=== PATIENT | male | born 1980 | race African-American/Black ===

== ENCOUNTER 2021-08-14 01:24 | Observation (INO) | payer OTHER ==
[2021-08-14] VITALS (11 sets, daily range): BP systolic 121–178; BP diastolic 67–97
[~2021-08-14] VITALS: Ht 175.3 cm; Wt 107.0 kg
--- NOTE | 2021-08-14 01:25 | NUR ---
BY EMS TO ROOM
--- NOTE | 2021-08-14 01:35 | NUR ---
PT AR[facility]IV[facility] FROM [facility]. PAIN 10/10 WITH C/O ABD PAIN AND EMESIS FOR THE LAST 6 HOURS. STATES NO BM FOR 3-4 DAYS. PT BP ELEVATED. PT STATES WAS ON BP MEDS IN PAST BUT HAS NOT TAKEN IN OVER 1 MONTH[address] MON[address]ORS APPLIED AND DR. Zhang BOUCHER BS.
[2021-08-14 02:13] LABS: HEMATOCRIT 39.1 % (39.0-50.0); HEMOGLOBIN 11.9 g/dl (14.0-18.0); IMMATURE GRANULOCYTES 0.6 % (0.0-5.0); MEAN CELL VOLUME 91.4 fL CALC (80.0-100.0); MEAN CORPUSCULAR HGB 27.8 pG CALC (26.0-32.0); MEAN CORPUSCULAR HGB CONC 30.4 g/dL CAL (32.0-36.0); NEUT# 10.14 thou/uL (1.82-7.42); RED BLOOD COUNT 4.28 mill/uL (4.70-6.10); RED CELL DISTRI WIDTH 12.2 % (11.5-15.5)
[2021-08-14 02:29] LABS: ALKALINE PHOSPHATASE 95 u/l (38-126); AMYLASE 110 u/l (30-110); ANION GAP 16 (6-22 (CALC)); BILIRUBIN, TOTAL 0.9 mg/dL (0.0-1.4); BUN 13 mg/dL (9-20); BUN/CREATININE RATIO 18 (12-20 (CALC)); CARBON DIOXIDE 25 mmol/l (22-30); CHLORIDE 100 mmol/l (95-108); CREATININE 0.7 mg/dL (0.7-1.3); GFR > 60 ML/MIN (>=60 (CALC)); GFR FOR AFR.AMER. > 60 ML/MIN (>=60 (CALC)); LIPASE 87 u/l (23-300); POTASSIUM 4.1 mmol/l (3.5-5.1); SGOT/AST 33 u/l (17-59); SODIUM 136 mmol/l (137-146); TOTAL PROTEIN 8.9 g/dL (6.3-8.2)
[2021-08-14 02:31] LABS: ACT PARTIAL THROMBO TIME 22.4 SECONDS (20.0-32.5); INTERNATIONAL NORMALIZED RATIO 1.1 RATIO (0.7-1.3)
--- NOTE | 2021-08-14 03:04 | NUR ---
CONTINUES TO BE COMFORTABLE. DENIES NAUSEA OR VOMITING. PAIN 12/26
--- NOTE | 2021-08-14 03:30 | NUR ---
RETURN FROM RADIOLOGY. STILL UNABLE VOID. IV FLUIDS RESTARTED.
--- NOTE | 2021-08-14 04:20 | NUR ---
PT TO BE TRANSFERRED TO M/S 279.
[2021-08-14 05:04] LABS: URINE BILIRUBIN - DIPSTICK NEGATIVE (NEGATIVE); URINE BLOOD DIPSTICK TRACE-INTACT (NEGATIVE); URINE COLOR YELLOW; URINE GLUCOSE - DIPSTICK NEGATIVE (NEGATIVE); URINE KETONE NEGATIVE (NEGATIVE); URINE LEUK ESTERASE NEGATIVE (NEGATIVE); URINE PH 7.5 (4.5-8.0); URINE PROTEIN - DIPSTICK NEGATIVE (NEG-TRACE); URINE SPECIFIC GRAVITY 1.015; URINE UROBILINOGEN - DIPSTICK 0.2 E.U./dL (0.2)
[2021-08-14 05:05] LABS: URINE NITRITE - DIPSTICK NEGATIVE (Negative)
--- NOTE | 2021-08-14 05:53 | NUR ---
PATIENT ARRIVED VIA STRETCHER ACCOMPANIED BY Alvina DURAN RN, AND [facility] GUARDS X2. BEDSIDE REPORT RECEIVED AT THIS TIME, ANTIBIOTIC STARTED AND FLUIDS TO RUN AFTER, FLUIDS STARTED IN ER. PATIENT IS VERY SLEEPY RELATED TO THE MEDICATION GIVEN IN ER, NO COMAPLAINTS AT THIS TIME. #18 IN RIGHT AC, EMS, SITE. ASSESMENT AND VITALS COMPLETED. REVIEWED PLAN OF CARE WITH PATIENT, ORIENTED TO CALL LIGHT SYSTEM AND ADVISED PT HE IS TO BE NPO. CALL LIGHT AND BEDSIE TABLE WITHIN REACH.
--- NOTE | 2021-08-14 07:59 | NUR ---
REPORT RECEIVED FROM DIMPLE [place]. PT RESTING IN BED SEMI FOWLERS WITH EYES CLOSED; AWAKENS WITH LOUD VERBAL STIMULI; DROWSY AND ORIENTED X 3. DENIES PAIN AND NAUSEA. RESPIRATIONS EVEN AND UNLABORED ON ROOM AIR. 2 GUARDS AT BEDSIDE; LLE SHACKLED TO BED; GOOD PEDAL PULSES. SKIN FEELS WARM; TEMP 100.2; BLANKET REMOVED. IV FLUIDS INFUSING WITHOUT DIFFICULTY; IV SITE APPEARS HEALTHY. POC REVIEWED; PT ENCOURAGED TO VERBALIZE CONCERNS. SAFETY MEASURES IN PLACE; CALL LIGHT WITHIN REACH.
--- NOTE | 2021-08-14 10:15 | NUR ---
DR. NGUYEN AND NAYELI DELGADILLO AT BEDSIDE.
[2021-08-14] MEDS ORDERED: LISINOPRIL5 MG PO (11:04)
--- NOTE | 2021-08-14 12:30 | NUR ---
DR. RUELAS AT BEDSIDE TO DISCUSS PLANS FOR SURGERY.
--- NOTE | 2021-08-14 13:06 | NUR ---
OFF UNIT VIA STRETCHER WITH OR STAFF; GUARDS WILL ACCOMPANY PATIENT TO SURGERY. VSS STABLE PRIOR TO LEAVING UNIT; CONDITION IS STABLE. PT CONTINUES TO DENY PAIN AT THIS TIME. ONLY COMPLAINT IS THAT HE IS HUNGRY.
--- NOTE | 2021-08-14 15:49 | NUR ---
RETURNED TO ROOM AT 1521 IN STABLE CONDITION. PT STOOD AND AMBULATED SHORT DISTANCE TO BED. BEDSIDE REPORT RECEIVED FROM OR NURSE. 3 LAP SITES TO ABDOMEN WELL APPROXIMATED WITH DERMABOND. VSS. SCD'S APPLIED TO BLE; INCENTIVE SPIROMETER PROVIDED AND EDUCATED PT ON USE; RETURN DEMONSTRATION. DENIES PAIN CURRENTLY. REQUESTING WATER AND JELLO. LLE SHACKED TO BED; GUARDS AGAIN AT BEDSIDE.
--- NOTE | 2021-08-14 16:43 | NUR ---
TEMPERTURE INCREASED TO 100.7 AND BLOOD PRESSURE INCREASED TO 172/97. PT REPORTS THAT HE FEELS LIKE HE HAS TO HAVE A BOWEL MOVEMENT. AMBULATED TO BATHROOM, BUT DID NOT HAVE BOWEL MOVEMENT. SCHEDULED TORADOL GIVEN EARLY FOR TEMPREATURE AND ABDOMINAL TENDERNESS. WILL CONTINUE TO MONITOR BLOOD PRESSURE.
--- NOTE | 2021-08-14 20:39 | NUR ---
UPON ENTERING ROOM, LIGHTS WERE OFF, TV ON LOW, GUARDS X2 AT BEDSIDE. PT AWOKE TO MY VOICE. DINNER TRAY AT BEDSIDE 1/3 EATEN, DENIES NAUSEA OR VOMITING. ASSESSMENT COMPLETED AT THIS TIME, HYPOACTIVE BOWEL SOUNDS, LAP INCISIONAL DRESSING CDI AT THIS TIME. PT MEDICATED FOR BP ORDERS PROVIDE SCHEDULED AT THIS TIME. CALL LIGHT IS W/IN REACH. PT C/O SORE THROAT, BUT DENIES ANY PAIN AT ALL INCISIONAL AREA OR ABD. POC AND MED SCHEDULE DISCUSSED, VERBALIZED UNDERSTANDING. PT ENCOURAGED TO CALL NEEDS ARISE, GUARDS X2 AT BEDSIDE DENY NEEDS ALSO AT THIS TIME.
--- NOTE | 2021-08-14 23:48 | NUR ---
PT WAS SLEEPING I ENTERED THE ROOM. PT MEDICATED ORDERS PROVIDE. DENIES ANY OTHER NEEDS AT THIS TIME. PAIN REPORTED AT 2/10 ON PAIN SCALE. PT SHACKLED TO BED AT LEFT ANKLE. GUARDS X2 AT BEDSIDE.
[2021-08-15 01:44] VITALS: BP 118/68
--- NOTE | 2021-08-15 01:55 | NUR ---
PT APPEARS TO BE SLEEPING, NO S/O DISTRESS NOTED. GUARDS X2 AT BEDSIDE.
[2021-08-15 04:11] VITALS: BP 124/58
--- NOTE | 2021-08-15 05:19 | NUR ---
IVF REPLENISHED AT THIS TIME. PT PROVIDED COFFEE PER REQUEST. DENIES ANY OTHER NEEDS AT THIS TIME.
[2021-08-15 06:00] LABS: ANION GAP 10 (6-22 (CALC)); BUN 14 mg/dL (9-20); BUN/CREATININE RATIO 16 (12-20 (CALC)); CARBON DIOXIDE 27 mmol/l (22-30); CHLORIDE 107 mmol/l (95-108); CREATININE 0.9 mg/dL (0.7-1.3); GFR > 60 ML/MIN (>=60 (CALC)); GFR FOR AFR.AMER. > 60 ML/MIN (>=60 (CALC)); POTASSIUM 4.2 mmol/l (3.5-5.1); SODIUM 140 mmol/l (137-146)
[2021-08-15 06:02] LABS: HEMATOCRIT 34.5 % (39.0-50.0); MEAN CELL VOLUME 87.8 fL CALC (80.0-100.0); MEAN CORPUSCULAR HGB CONC 31.9 g/dL CAL (32.0-36.0); RED BLOOD COUNT 3.93 mill/uL (4.70-6.10); RED CELL DISTRI WIDTH 12.4 % (11.5-15.5)
--- NOTE | 2021-08-15 06:03 | NUR ---
PT MEDICATED ORDERS PROVIDE. HE IS AWAKE WATCHING TV. DENIES PAIN GREATER THAN 1/10 ON PAIN SCALE. SHACKLED AT LEFT ANKLE TO THE BED/CIRCULATION CHECKS DONE, LAP INCISIONS CDI AT THIS TIME ALSO.
[2021-08-15 07:15] VITALS: BP 142/98
--- NOTE | 2021-08-15 07:15 | NUR ---
PATIENT LAYING IN BED AT THIS TIME ALERT AND ORIENTED AT THIS TIME. PATIENT PRESENTS WITH THREE ABDOMINAL DERMABOND SITES THAT ARE DRY AND INTACT. PATIENT DENIES ANY PAIN AND HAS ACTIVE BOWEL SOUNDS IN ALL FOUR QUADRANTS AT THIS TIME. PATIENT IN SHACKLED TO BED BY ANKLES AND [employer] OFFICERS ARE AT BEDSIDE. PATIENTS SHACKLES ARE NON-OBSTRUCTING BLOOD FLOW. SIDERAILS ARE UP CALL LIGHT WIHTIN REACH.
[2021-08-15 10:43] VITALS: BP 116/56
[2021-08-15] MEDS ORDERED: MOTRIN800 MG PO (10:58)
[2021-08-15] MEDS ORDERED: ZOFRAN4 MG/TAB PO (10:58)
--- NOTE | 2021-08-15 11:19 | NUR ---
PATIENT D/C AT THIS TIME. PATIENT VERBALIZED UNDERSTANDING OF DC AND PACKET GIVEN TO OFFICERS. THIS NURSE DID CALL [facility] AND LEFT MESSAGE ON [facility] LINE.
--- NOTE | 2021-08-15 11:47 | NUR ---
Discharge instructions given. Patient verbalizes understanding of same. [facility] stable [facility]. All belongings sent with pt. PATIENT ESCORTED BY [facility] AND WHEELCHAIRED DOWN TO [facility].
== END 2021-08-15 11:47 | disposition designated cancer center or children's hospital (05) | DRG 854 ==
LOC: ED 01:24 → ED-I 03:20 → ED 03:53 → MS2 03:54
PROVIDERS: Nurse Practitioner; ADMIT Hospitalist; ATTEND Hospitalist
PROC: 0DTJ4ZZ Resection of Appendix, Percutaneous Endoscopic Approach (ICD-10-PCS; principal; 2021-08-14)
DX: A41.9 Sepsis, unspecified organism (principal); K35.30 Acute appendicitis with localized peritonitis, without perforation or gangrene; I10 Essential (primary) hypertension; F41.9 Anxiety disorder, unspecified; Z20.822 Contact with and (suspected) exposure to COVID-19
CPT/HCPCS: G0378; J0131; J2710; Q9967